=== PATIENT | female | born 1955 | race Two or more races ===

== ENCOUNTER 2017-01-06 14:32 | Inpatient (IN) | payer MEDICAID ==
[~2017-01-06 14:32] MED LIST: HYDROmorphONE/DILAUDID 1 MG/ML SYR IVP ONE
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
[2017-01-06] MEDS ORDERED: KETOROLAC 30 MG/1 ML SDV IVP ONE (15:39)
[2017-01-06] MEDS ORDERED: LORazepam 2 MG/ML INJ IVP ONE ×2 (15:40→18:50)
[2017-01-06] MEDS ORDERED: NS 1,000 ML IV ONE ×2 (15:41→17:14)
[2017-01-06] MEDS ORDERED: ONDANSETRON 4 MG/2 ML VIAL IVP ONE (15:43)
[2017-01-06 15:46] LABS: % IMMATURE GRANULYOCYTES 0.6 % (0.0-1.1); ABSOLUTE IMMATURE GRANULOCYTES 0.08 10^3/uL (0.00-0.10); ADD DIFF? NO; ADD MORPH? NO; ADD SCAN? NO; ATYPICAL LYMPHOCYTE FLAG 10 (0-99); FRAGMENT RBC FLAG 0 (0-99); HEMATOCRIT 39.8 % (38.0-47.0); HEMOGLOBIN 13.9 g/dL (12.6-16.3); LEFT SHIFT FLG 0 (0-99); LIPEMIA HEMOLYSIS FLAG 90 (0-99); MEAN CELL HEMOGLOBIN 31.2 pg (27.9-34.1); MEAN CELL HEMOGLOBIN CONCENTR. 34.9 g/dL (32.4-36.7); MEAN CELL VOLUME 89.2 fL (81.5-99.8); PLATELET CLUMPS FLAG 0 (0-99); PLATELET COUNT 374 10^3/uL (150-400); RED BLOOD CELL COUNT 4.46 10^6/uL (4.18-5.33); RED CELL DISTRIBUTION WIDTH 12.5 % (11.5-15.2)
[2017-01-06 15:57] LABS: INR 0.98 (0.83-1.16); PROTIME(PATIENT) 12.7 SEC (12.0-15.0)
[2017-01-06 16:02] LABS: ALANINE AMINOTRANSFERASE 40 IU/L (9-52); ALBUMIN 3.9 g/dL (3.5-5.0); ALKALINE PHOSPHATASE 86 IU/L (38-126); ANION GAP 15 mEq/L (8-16); ASPARTATE AMINOTRANSFERASE 34 IU/L (14-46); BILIRUBIN,TOTAL 0.7 mg/dL (0.1-1.4); CALCIUM 10.1 mg/dL (8.5-10.4); CARBON DIOXIDE 22 mEq/l (22-31); CHLORIDE 105 mEq/L (97-110); CREATININE 0.5 mg/dL (0.6-1.0); GLOMERULAR FILTRATION RATE > 60; GLUCOSE 83 mg/dL (70-100); SODIUM 142 mEq/L (134-144); TOTAL PROTEIN 7.3 g/dL (6.3-8.2)
[2017-01-06 18:14] LABS: COLOR YELLOW; LEUKOCYTE ESTERASE,URINE TRACE (NEGATIVE); NITRITE,URINE NEGATIVE (NEGATIVE); PH,URINE 7.5 (5.0-7.5)
[2017-01-06 18:23] LABS: AMORPHOUS 2+ /hpf (NONE-1+); BACTERIA TRACE /hpf (NONE SEEN); MUCUS TRACE /lpf (NONE-1+); RBC,URINE NONE SEEN /hpf (0-3); WBC,URINE OCCASIONAL /hpf (0-3)
[2017-01-06] MEDS ORDERED: HYDROmorphONE/DILAUDID 1 MG/ML SYR ONE (18:52)
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
--- NOTE | 2017-01-06 18:56 | CPEKG ---
Heart Rate: 81 RR Interval: 741 P-R Interval: 180 QRSD Interval: 88 QT Interval: 408 QTC Interval: 474 QRS [place]: 83 T Wave Denn[place]: 57 EKG Severity - ABNORMAL ECG - EKG Impression: SINUS RHYTHM EKG Impression: BORDERLINE RIGHT AXIS DEVIATION Electronically Signed By: Alek Sage 06-Jan-2017 19:01:51
[2017-01-06] MEDS ORDERED: ONDANSETRON 4 MG/2 ML VIAL IVP PRN (22:34)
[2017-01-06] MEDS ORDERED: HYDROmorphONE/DILAUDID 1 MG/ML SYR IVP PRN (22:34)
[2017-01-06] MEDS ORDERED: ACETAMINOPHEN 325 MG TAB PO PRN (22:34)
[2017-01-06] MEDS ORDERED: ONDANSETRON DISINTEGRATING 4 MG TAB PO PRN (22:34)
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
[2017-01-07 05:12] LABS: % IMMATURE GRANULYOCYTES 0.1 % (0.0-1.1); ABSOLUTE IMMATURE GRANULOCYTES 0.01 10^3/uL (0.00-0.10); ADD DIFF? NO; ADD MORPH? NO; ADD SCAN? NO; ATYPICAL LYMPHOCYTE FLAG 10 (0-99); FRAGMENT RBC FLAG 0 (0-99); HEMATOCRIT 32.6 % (38.0-47.0); HEMOGLOBIN 11.1 g/dL (12.6-16.3); LEFT SHIFT FLG 0 (0-99); LIPEMIA HEMOLYSIS FLAG 90 (0-99); MEAN CELL HEMOGLOBIN 31.4 pg (27.9-34.1); MEAN CELL VOLUME 92.4 fL (81.5-99.8); MEAN PLATELET VOLUME 9.3 fL (8.7-11.7); PLATELET CLUMPS FLAG 0 (0-99); PLATELET COUNT 282 10^3/uL (150-400); RED BLOOD CELL COUNT 3.53 10^6/uL (4.18-5.33); RED CELL DISTRIBUTION WIDTH 12.9 % (11.5-15.2)
[2017-01-07] MEDS: oxyCODONE IR 5 MG TAB PO PRN (05:27)
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
[2017-01-07] MEDS: IBUPROFEN 800 MG TAB PO SCH ×2 (15:38→23:22)
[2017-01-07] MEDS: CALCIUM CARBONATE 500 MG CHEWABLE TAB PO PRN (20:03)
[2017-01-07 23:29] VITALS: O2SAT 95
[2017-01-08] MEDS: IBUPROFEN 800 MG TAB PO SCH ×2 (05:36→13:56)
[2017-01-08 09:04] VITALS: BP 107/63; PULSE 76; RESP 18; TEMP 97.9
[2017-01-08] MEDS: oxyCODONE IR 5 MG TAB PO PRN (09:29)
[2017-01-08] MEDS: CALCIUM CARBONATE 500 MG CHEWABLE TAB PO PRN (09:30)
--- NOTE | 2017-01-08 12:13 | PDIAF ---
- Diagnosis Diagnosis: lumbar fx Code Status: Full Code - Medication Management Discharge Medications: Medications to Continue on Transfer Acetaminophen [Tylenol 325mg (*)] 650 mg PO Q4HRS PRN #0 tab 01/08/17 [Last Taken Unknown] Calcium Carbonate [Tums 500MG (*)] 500 mg PO TID PRN #0 tab.chew 01/08/17 [Last Taken Unknown] Ibuprofen [Motrin (*)] 800 mg PO Q8HRS tab 01/08/17 [Last Taken Unknown] oxyCODONE IR [Oxycodone Ir (*)] 5 - 10 mg PO Q3HRS PRN #20 tab 01/08/17 [Last Taken Unknown] Discharge Medications: Refer to the Discharge Home Medication list for PRN reason. PICC Care - Routine: N/A - Orders Services needed: Home Care, Physical Therapy, Occupational Therapy Home Care Face to Face: I certify that this patient was under my care and that I had the required [id number] encounter meeting the encounter requirements on the discharge day. My findings support the fact that the patient is homebound as defined in CMS Chapter 7 Medicare Benefits Manual 30.1.1, The condition of the patient is such that there exists a normal inability to leave home and consequently, leaving home would require a considerable and taxing effort. Diet Recommendation: no restrictions on diet - Follow Up Care Current Providers and Referrals: Man Thomas MD [Medical Doctor] - (follow up in 6 weeks. plan on getting xrays ) NONE *PRIMARY CARE P,. [Primary Care Provider] - As per Instructions
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
== END 2017-01-08 14:14 | disposition home health service (06) | DRG 552 ==
LOC: CED 14:32 → INTOOBSV 19:14 → F3N 20:39 → OBSVTOIN 01-07 15:05
PROVIDERS: ADMIT Hospitalist; ATTEND Hospitalist
DX: S32.030A Wedge compression fracture of third lumbar vertebra, initial encounter for closed fracture (principal); Y01.XXXA Assault by pushing from high place, initial encounter; Y92.015 Private garage of single-family (private) house as the place of occurrence of the external cause; T74.11XA Adult physical abuse, confirmed, initial encounter; Y07.03 Male partner, perpetrator of maltreatment and neglect
CPT/HCPCS: 70450-PO; 71020-PO; 72125-PO; 72128-PO; 72131-PO; 72170-PO; 80053-PO; 81003-PO; 81015-PO; 82550-PO; 85025-PO; 85610-PO; 85730-PO; 96374; 97116-GP; 97162-GP; 97165-GO; 97530-GO; 97535-GO; G0378; J1170; J2060; J2405